=== PATIENT | male | born 1995 | race American Indian/Alaskan Native ===

== ENCOUNTER → 2023-10-08 08:53 | Outpatient (CLI) | payer MEDICAID, SELFPAY ==
--- NOTE | 2023-10-08 08:59 | DI.US.S_ITS ---
PROCEDURE: US EXTREMELY NONVASC UPPER RT INDICATIONS: ACCUPUNCTURE FRAGMENT IN WRIST TECHNIQUE: Real-time scanning was performed of the right wrist , with image documentation. COMPARISON: None. FINDINGS: Ultrasound evaluation of the right wrist is negative. No evidence of foreign body. IMPRESSION: Negative examination. Dictated by: Brian Rhoades M.D. on 10/08/2023 at 9:22 Approved by: Brian Rhoades M.D. on 10/08/2023 at 9:23
== END ==
PROVIDERS: Referring Provider Nurse Practitioner Family; Visit Provider Nurse Practitioner Family
DX: S60.851A Superficial foreign body of right wrist, initial encounter (principal); X58.XXXA Exposure to other specified factors, initial encounter
CPT/HCPCS: 76882